=== PATIENT | male | born 1990 | race African-American/Black ===

== ENCOUNTER 2017-10-01 13:40 | Emergency (ER) | payer OTHER ==
[~2017-10-01] VITALS: Ht 182.9 cm; Wt 104.8 kg
[2017-10-01 14:32] LABS: CHLORIDE 102 mEq/L (99-109); POTASSIUM 3.2 mEq/L (3.7-5.4); SODIUM 139 mEq/L (136-147)
[2017-10-01 14:34] LABS: GLUCOSE 117 mg/dL (70-99)
[2017-10-01 14:35] LABS: ANION GAP 11 MEQ/L (2-14)
[2017-10-01 14:36] LABS: TOTAL BILIRUBIN 0.3 mg/dL (0.0-1.0)
[2017-10-01 14:38] LABS: ALKALINE PHOSPHATASE 91 IU/L (3-129)
[2017-10-01 14:39] LABS: UREA NITROGEN (BUN) 8 mg/dL (9-23)
[2017-10-01 14:41] LABS: GFR ESTIMATE (CALCULATED) > 59 mL/min/; LIPASE 10 U/L (1.0-51.0)
[2017-10-01] MEDS ORDERED: ZOFRAN ODT8 MG PO (16:15)
[2017-10-01 16:32] VITALS: BP 137/87
== END 2017-10-01 16:50 | disposition home or self-care (01) ==
LOC: EME 13:40
PROVIDERS: Physician Assistant
DX: R11.2 Nausea with vomiting, unspecified (principal)
CPT/HCPCS: 80053; 83690; 99281; 99284; J2405; J7030

== ENCOUNTER 2018-01-13 12:06 | Inpatient (IN) | payer OTHER ==
[~2018-01-13] VITALS: Ht 182.9 cm; Wt 100.2 kg
[~2018-01-13 12:06] MED LIST: ZOFRAN ODT8 MG PO
[2018-01-13 13:21] LABS: HEMATOCRIT 39.6 % (38.0-50.0); HEMOGLOBIN 12.8 G/DL (12.5-16.6); MCH 26.6 PG (29.0-34.0); MCHC 32.3 G/DL (30.0-36.0); MCV 82.2 FL (86-99); PLATELET COUNT 300 K/uL (156-360); RBC DIS.WIDTH-CV 14.2 % (11.8-14.6); RBC DIS.WIDTH-SD 42.5 % (39-53); RED BLOOD COUNT 4.82 M/uL (4.00-5.50); WHITE BLOOD COUNT 10.1 K/uL (4.1-10.2)
[2018-01-13 13:31] LABS: CHLORIDE 105 mEq/L (99-109); POTASSIUM 4.4 mEq/L (3.7-5.4); SODIUM 136 mEq/L (136-147)
[2018-01-13 13:32] LABS: GLUCOSE 97 mg/dL (70-99)
[2018-01-13 13:36] LABS: CREATININE 1.7 mg/dL (0.6-1.3); GFR ESTIMATE (CALCULATED) > 59 mL/min/ (58.99-99999)
[2018-01-13 13:37] LABS: UREA NITROGEN (BUN) 25 mg/dL (9-23)
[2018-01-13 13:43] LABS: TROP-I INTERPRETATION NEGATIVE; TROPONIN-I < 0.01 ng/mL (0.0-0.30)
[2018-01-13 14:55] LABS: APPEARANCE CLEAR ((CLEAR)); BILIRUBIN NEGATIVE; BLOOD NEGATIVE; COLOR YELLOW ((YELLOW)); GLUCOSE (STRIP) NEGATIVE; KETONES NEGATIVE; LEUKOCYTES NEGATIVE; NITRITE NEGATIVE; PROTEIN (STRIP) NEGATIVE; SPECIFIC GRAVITY 1.008 (1.000-1.030); UROBILINOGEN 0.2 MG/DL (0.2-1.0)
[2018-01-13] MEDS ORDERED: AMLODIPINE BESY10 MG PO (16:30)
[2018-01-13] MEDS ORDERED: BENZTROPINE ME0.5 MG PO (16:31)
[2018-01-13] MEDS ORDERED: CLOZARIL100 MG PO (16:33)
[2018-01-13] MEDS ORDERED: DAILY MULTIPLE1 EACH PO (16:34)
[2018-01-13] MEDS ORDERED: COLACE100 MG PO (16:35)
[2018-01-13] MEDS ORDERED: HALDOL DEC100 MG/1 M IM (16:37)
[2018-01-13] MEDS ORDERED: HYDROCHLOROTHIA25 MG PO (16:37)
[2018-01-13] MEDS ORDERED: LISINOPRIL20 MG PO (16:39)
[2018-01-13] MEDS ORDERED: LITHIUM CARBON300 MG PO (16:39)
[2018-01-13] MEDS ORDERED: METOPROLOL SUCC25 MG PO (16:41)
[2018-01-13] MEDS ORDERED: METOPROLOL SUCC50 MG PO (16:41)
[2018-01-13] MEDS ORDERED: ZANTAC150 MG PO (16:42)
[2018-01-13] MEDS ORDERED: TYLENOL REGULA325 MG PO (16:43)
[2018-01-13] MEDS ORDERED: EPIPEN ADU0.3 MG/0.3 IM (16:45)
[2018-01-13] MEDS ORDERED: FLONASE16 G1 BOTH NARES (16:48)
[2018-01-13] MEDS ORDERED: MOTRIN600 MG PO (16:49)
[2018-01-13] MEDS ORDERED: MILK OF MAGN PO (16:50)
[2018-01-13] MEDS ORDERED: VENTOLIN HFA18 GM IH (16:50)
[2018-01-13 19:38] VITALS: BP 127/77
[2018-01-13] MEDS ORDERED: CLOZARIL25 MG PO (20:24)
[2018-01-13 21:14] LABS: TROP-I INTERPRETATION NEGATIVE; TROPONIN-I < 0.01 ng/mL (0.0-0.30)
[2018-01-13 22:36] VITALS: BP 111/61
[2018-01-14 03:56] VITALS: BP 104/56
[2018-01-14 06:40] LABS: CHLORIDE 108 MEQ/L (99-109); GFR ESTIMATE (CALCULATED) > 59 mL/min/ (58.99-99999); GLUCOSE 86 mg/dL (70-99); POTASSIUM 4.7 MEQ/L (3.7-5.4); SODIUM 140 MEQ/L (136-147); UREA NITROGEN (BUN) 17 mg/dL (9-23)
[2018-01-14 06:50] LABS: TROP-I INTERPRETATION NEGATIVE; TROPONIN-I < 0.01 ng/mL (0.0-0.30)
[2018-01-14 06:59] LABS: CREATININE 1.2 MG/DL (0.6-1.3)
[2018-01-14 07:53] VITALS: BP 108/63
[2018-01-14 11:35] VITALS: BP 104/69
[2018-01-15 16:07] VITALS: BP 98/53
== END 2018-01-15 16:44 | DRG 683 ==
LOC: EME 12:06 → EDOF 16:20 → 5EAST 16:20 → ENRESERV 16:44 → 5EAST 19:32
PROVIDERS: Emergency Medicine; Internal Medicine; Nurse Practitioner Family
DX: N17.9 Acute kidney failure, unspecified (principal); F72 Severe intellectual disabilities; F05 Delirium due to known physiological condition; F31.9 Bipolar disorder, unspecified; I10 Essential (primary) hypertension; I95.2 Hypotension due to drugs; T46.4X5A Adverse effect of angiotensin-converting-enzyme inhibitors, initial encounter; I44.0 Atrioventricular block, first degree; I45.4 Nonspecific intraventricular block; J45.909 Unspecified asthma, uncomplicated; K21.9 Gastro-esophageal reflux disease without esophagitis; R45.1 Restlessness and agitation; Y92.199 Unspecified place in other specified residential institution as the place of occurrence of the external cause; Z91.013 Allergy to seafood; Z87.820 Personal history of traumatic brain injury; Z87.828 Personal history of other (healed) physical injury and trauma; Z87.891 Personal history of nicotine dependence; Z79.51 Long term (current) use of inhaled steroids
CPT/HCPCS: 70450; 71046; 80048; 80178; 81003; 84484; 85027; 90686; 93005; 99281; 99284; J1644; J7030